=== PATIENT | female | born 1950 | race Caucasian/White ===

== ENCOUNTER → 2021-07-19 09:48 | Outpatient (BNVA) | payer MEDICARE, SELFPAY | PROVIDERS: PCP Internal Medicine; Visit Provider Psychiatry & Neurology Neurology | DX: G25.81 Restless legs syndrome (principal); M25.572 Pain in left ankle and joints of left foot; Z79.899 Other long term (current) drug therapy | CPT/HCPCS: 99212 ==

== ENCOUNTER → 2021-08-23 11:16 | Outpatient (BNVA) | payer MEDICARE, SELFPAY | PROVIDERS: PCP Internal Medicine; Visit Provider Psychiatry & Neurology Neurology | DX: G25.81 Restless legs syndrome (principal); M25.579 Pain in unspecified ankle and joints of unspecified foot; Z79.899 Other long term (current) drug therapy | CPT/HCPCS: 99212 ==

== ENCOUNTER → 2021-11-29 09:34 | Outpatient (BNVA) | payer MEDICARE, SELFPAY | PROVIDERS: PCP Internal Medicine; Visit Provider Psychiatry & Neurology Neurology | DX: G25.81 Restless legs syndrome (principal); M25.579 Pain in unspecified ankle and joints of unspecified foot | CPT/HCPCS: 99212 ==

== ENCOUNTER → 2022-03-12 12:55 | Outpatient (BNVA) | payer OTHER, SELFPAY | PROVIDERS: PCP Internal Medicine; Visit Provider Psychiatry & Neurology Neurology | DX: G25.81 Restless legs syndrome (principal) ==

== ENCOUNTER → 2022-08-05 15:51 | Outpatient (BNVA) | payer OTHER, SELFPAY | PROVIDERS: PCP Internal Medicine; Visit Provider Psychiatry & Neurology Neurology | DX: M25.579 Pain in unspecified ankle and joints of unspecified foot (principal); M54.10 Radiculopathy, site unspecified; G57.50 Tarsal tunnel syndrome, unspecified lower limb; G25.81 Restless legs syndrome ==

== ENCOUNTER 2023-01-03 13:35 | Outpatient (AMB) | payer MEDICARE, SELFPAY ==
[2023-01-03 13:50] VITALS: BP 160/73; PULSE 82; RESP 16; O2SAT 98; BMI 27.7
--- NOTE | 2023-01-03 13:50 | MHC.OFFVIS ---
Intake Vital Signs 01/03/23 13:50 Height 5 ft 4 in Weight 161 lb 4 oz BMI 27.7 BP 160/73 H Blood Pressure Location Lt brachial Position Sitting Respiration 16 Pulse 82 Pulse Source Pulse Oximeter Pulse Oximetry (%) 98 Oxygen Delivery Method Room Air Intake Visit Reasons: [employer]-Chronic Neuropathy/confirmed Allergies amoxicillin [From Augmentin] Allergy (Mild, Verified 08/05/22 15:57) Hives clavulanic acid [From Augmentin] Allergy (Mild, Verified 08/05/22 15:57) Hives sulfamethoxazole [From Bactrim] Allergy (Mild, Verified 08/05/22 15:57) Hives trimethoprim [From Bactrim] Allergy (Mild, Verified 08/05/22 15:57) Hives NSAIDS (Non-Steroidal Anti-Inflamma Adverse Reaction (Intermediate, Verified 01/03/23 13:47) Hives pregabalin [From Lyrica] Adverse Reaction (Intermediate, Verified 01/03/23 13:47) hives Sulfa (Sulfonamide Antibiotics) Adverse Reaction (Intermediate, Verified 01/03/23 13:48) Hives HPI HPI Comments History of Present Illness Details Eva is a very pleasant 72 year old female who presents to the office today for evaluation and management of her chronic bilateral painful peripheral neuropathy. Patient reports burning, tingling, stinging pain to both feet for the last several years. She states the pain started with just a little burning pain that has progressively worsened over the last couple of years. Neurology has been following her for this pain. She takes gabapentin that helps a little. She tried requip in the past but it did not help her pain. They offered to increase the dose of her gabapentin but she does not want to be sedated. Pain today is rated as 7/10, bottom and top of both feet up to her ankles. In terms of muscle damage condition is described as aching, hot, burning, tiring, exhausting, tingling, pins and needles. Patient denies history of diabetes. [facility] Medical History Arthritis Low back pain Pain Radiculopathy Right ankle injury Tarsal tunnel syndrome Surgical History History of carpal tunnel surgery History of knee replacement procedure of left knee Hx of section Family History Father Tremor Neuropathy Social History Household Members: Children Alcohol intake: current Alcohol intake frequency: holidays/special occasions only Alcohol type: wine Patient Tobacco Use Status: Never used Tobacco Review of Systems Const All systems reviewed & are unremarkable except as noted in HPI and below Physical Exam Vital Signs: Last Vital Signs Pulse 82 01/03/23 13:50 Resp 16 01/03/23 13:50 BP 160/73 H 01/03/23 13:50 Pulse Ox 98 01/03/23 13:50 Oxygen Delivery Method Room Air 01/03/23 13:50 BMI result Body Mass Index 27.7 General: awake, alert, oriented. Answers questions appropriately. Fully engaged in examination. Skin: warm, dry, intact. no open areas noted to either foot. HEENT: Normocephalic. Hearing intact. Cardiac: External chest normal in appearance. Respiratory: No cough, audible wheezing or stridor. Abdomen: without gross distension. MS: No obvious swelling or deformities. Able to transition from sit to stand unassisted. Ambulates with bilaterally normal heel strike and toe off intact light touch sensation bilateral feet 2+ DP and PT pulses bilaterally Neurological: Oriented to person, place, time and situation. Thought process intact. No gait abnormalities appreciated. Psychiatric: Appropriate mood and affect. Good judgment and insight. Assessment & Plan Assessment & Plan (1) Peripheral neuropathy: Code(s): G62.9 - Polyneuropathy, unspecified Plan Eva is a very pleasant 72 year old female who presented to the office today for evaluation and management of her bilateral painful peripheral neuropathy. Patient has been suffering with this pain for several years and has not found relief with topical medications, gabapentin, requip. Discussed options for treatment, Qutenza pamphlet provided. Lengthy discussion with patient detailing Qutenza application, preparation for the appointment with EMLA topical and expectations during application visit. PA will be submitted for Qutenza, patient expecting a call to schedule application once approved. All questions and concerns were answered during the visit. Patient agrees to the plan. Follow up for Qutenza application, sooner if needed. Coding Level of Care Code New Pt Level 4 (37366) Diagnoses Peripheral neuropathy G62.9
== END 2023-01-03 14:24 | disposition home or self-care (01) ==
PROVIDERS: PCP Internal Medicine; Visit Provider Registered Nurse Emergency
DX: G62.9 Polyneuropathy, unspecified (principal)
CPT/HCPCS: 99204

== ENCOUNTER → 2023-01-03 13:35 | Outpatient (BNVA) | payer MEDICARE, SELFPAY | PROVIDERS: PCP Internal Medicine; Visit Provider Registered Nurse Emergency | DX: G62.9 Polyneuropathy, unspecified (principal) | CPT/HCPCS: 99202 ==

== ENCOUNTER 2023-02-11 13:45 | Outpatient (AMB) | payer MEDICARE, SELFPAY ==
--- NOTE | 2023-02-11 13:59 | MHC.OFFVIS ---
Intake Vital Signs 02/11/23 14:17 02/11/23 14:33 02/11/23 14:54 Height 5 ft 4 in Weight 157 lb 8 oz BMI 27.0 BP 141/68 H 122/65 127/58 L Blood Pressure Location Lt brachial Lt brachial Lt brachial Position Sitting Sitting Respiration 16 Pulse 76 Pulse Source Pulse Oximeter Pulse Oximetry (%) 95 Oxygen Delivery Method Room Air Intake Visit Reasons: Qutenza - 1st/lvm Allergies amoxicillin [From Augmentin] Allergy (Mild, Verified 02/11/23 13:58) Hives clavulanic acid [From Augmentin] Allergy (Mild, Verified 02/11/23 13:58) Hives sulfamethoxazole [From Bactrim] Allergy (Mild, Verified 02/11/23 13:58) Hives trimethoprim [From Bactrim] Allergy (Mild, Verified 02/11/23 13:58) Hives NSAIDS (Non-Steroidal Anti-Inflamma Adverse Reaction (Intermediate, Verified 02/11/23 13:58) Hives pregabalin [From Lyrica] Adverse Reaction (Intermediate, Verified 02/11/23 13:58) hives Sulfa (Sulfonamide Antibiotics) Adverse Reaction (Intermediate, Verified 02/11/23 13:58) Hives HPI HPI Comments History of Present Illness Details Patient presents back to the office, accompanied by her daughter, for 1st Qutenza application. She cleansed her feet at home and applied topical EMLA cream. Denies any new changes in her neuropathy since last visit. Still taking Gabapentin as prescribed. Denies any new rashes, injuries or wounds to either feet. Patient c/o persistent pain to the left knee, s/p replacement 05/2021. Has followed up with [facility], was told pain may resolve over time. Pain impacting mobility, function, daily activities, walking and enjoyment of life. Prior: Eva is a very pleasant 72 year old female who presents to the office today for evaluation and management of her chronic bilateral painful peripheral neuropathy. Patient reports burning, tingling, stinging pain to both feet for the last several years. She states the pain started with just a little burning pain that has progressively worsened over the last couple of years. Neurology has been following her for this pain. She takes gabapentin that helps a little. She tried requip in the past but it did not help her pain. They offered to increase the dose of her gabapentin but she does not want to be sedated. Pain today is rated as 7/10, bottom and top of both feet up to her ankles. In terms of muscle damage condition is described as aching, hot, burning, tiring, exhausting, tingling, pins and needles. Patient denies history of diabetes. [facility] Medical History Arthritis Low back pain Pain Radiculopathy Right ankle injury Tarsal tunnel syndrome Surgical History History of carpal tunnel surgery History of knee replacement procedure of left knee Hx of section Family History Father Tremor Neuropathy Social History Household Members: Children Alcohol intake: current Alcohol intake frequency: holidays/special occasions only Alcohol type: wine Patient Tobacco Use Status: Never used Tobacco Review of Systems Const All systems reviewed & are unremarkable except as noted in HPI and below Physical Exam Vital Signs: Last Vital Signs Pulse 76 02/11/23 14:17 Resp 16 02/11/23 14:17 BP 122/65 02/11/23 14:33 Pulse Ox 95 02/11/23 14:17 Oxygen Delivery Method Room Air 02/11/23 14:17 BMI result Body Mass Index 27.0 General: awake, alert, oriented. Answers questions appropriately. Fully engaged in examination. Skin: warm, dry, intact. no open areas noted to either foot. HEENT: Normocephalic. Hearing intact. Cardiac: External chest normal in appearance. Respiratory: No cough, audible wheezing or stridor. Abdomen: without gross distension. MS: No obvious swelling or deformities. Able to transition from sit to stand unassisted. Ambulates with bilaterally normal heel strike and toe off intact light touch sensation bilateral feet 2+ DP and PT pulses bilaterally Neurological: Oriented to person, place, time and situation. Thought process intact. No gait abnormalities appreciated. Psychiatric: Appropriate mood and affect. Good judgment and insight. Office Meds capsaicin-skin cleanser 8 % topical kit Performing Provider: Sharon Durham APRN, PEARL TECHNICIAN Performing Location: [facility] Administered by: Sharon Durham APRN, ALMITA on 02/11/23 14:29 Dose Route Admin Location Dispensed Lot Number Expiration Date [facility] [employer] 2 ea topical 2 ea [id number] 08/24/25 61617-825-96 [employer] Comments: Patient applied topical EMLA cream to both feet prior to arrival for her scheduled appointment. Feet exposed, no wounds, rashes or breaks in skin noted. Light touch sensation intact bilaterally. Four single use topical patches (179mg capsaicin) divided between feet, 2 patches per foot, wrapped and secured per package instructions. Patient monitored throughout the procedure with BP checks every 15 minutes. She tolerated the 30 minute application well. Assessment & Plan Assessment & Plan (1) Peripheral neuropathy: Code(s): G62.9 - Polyneuropathy, unspecified Plan Eva is a very pleasant 72 year old female who presented to the office today for 1st topical Qutenza application for her bilateral painful peripheral neuropathy. Qutenza applied as per above, patient monitored for 30 minutes during the procedure. Tolerated well. Patient also complaining of chronic left knee pain after replacement 05/2021. Discussed options for treatment today, [employer] [facility] pamphlet provided. Patient will review and call if she wants to schedule diagnostic left femoral nerve block. All questions and concerns were answered during the visit. Patient agrees to the plan. Follow up for 2nd Qutenza application, sooner if needed. Orders: Orders AMB Capsaicin Patch - Practice Supplied Today G62.9 - Polyneuropathy, unspecified Coding Level of Care Code Est Pt Level 4 (66947) Diagnoses Peripheral neuropathy G62.9
[2023-02-11 14:17] VITALS: BP 141/68; PULSE 76; RESP 16; O2SAT 95; BMI 27.0
[2023-02-11 14:33] VITALS: BP 122/65
[2023-02-11 14:54] VITALS: BP 127/58
== END 2023-02-11 15:20 | disposition home or self-care (01) ==
PROVIDERS: PCP Internal Medicine; Visit Provider Registered Nurse Emergency
DX: G62.9 Polyneuropathy, unspecified (principal)
CPT/HCPCS: 17999; 99213

== ENCOUNTER → 2023-02-11 13:45 | Outpatient (BNVA) | payer MEDICARE, SELFPAY | PROVIDERS: PCP Internal Medicine; Visit Provider Registered Nurse Emergency | DX: G62.9 Polyneuropathy, unspecified (principal) | CPT/HCPCS: 17999; 99212; J7336 ==

== ENCOUNTER 2023-05-14 13:43 | Outpatient (AMB) | payer MEDICARE, SELFPAY ==
[2023-05-14 13:56] VITALS: BP 140/69; PULSE 75; RESP 16; O2SAT 96; BMI 28.1
--- NOTE | 2023-05-14 13:56 | A.OFFVIS_ITS ---
Intake Vital Signs 05/14/23 13:56 05/14/23 14:37 05/14/23 15:12 Height 5 ft 4 in Weight 163 lb 8 oz BMI 28.1 BP 140/69 H 138/64 136/70 Blood Pressure Location Lt brachial Lt brachial Lt brachial Position Sitting Sitting Sitting Respiration 16 Pulse 75 Pulse Source Pulse Oximeter Pulse Oximetry (%) 96 Oxygen Delivery Method Room Air Intake Visit Reasons: Qutenza Allergies amoxicillin [From Augmentin] Allergy (Mild, Verified 05/14/23 13:57) Hives clavulanic acid [From Augmentin] Allergy (Mild, Verified 05/14/23 13:57) Hives sulfamethoxazole [From Bactrim] Allergy (Mild, Verified 05/14/23 13:57) Hives trimethoprim [From Bactrim] Allergy (Mild, Verified 05/14/23 13:57) Hives NSAIDS (Non-Steroidal Anti-Inflamma Adverse Reaction (Intermediate, Verified 05/14/23 13:57) Hives pregabalin [From Lyrica] Adverse Reaction (Intermediate, Verified 05/14/23 13:57) hives Sulfa (Sulfonamide Antibiotics) Adverse Reaction (Intermediate, Verified 05/14/23 13:57) Hives HPI HPI Comments History of Present Illness Details Eva presents to the office today for her second Qutenza application. Patient applied EMLA cream at home per instructions. She reports some improvement after the 1st Qutenza application, but states that it only lasted for a short time. She endorses burning and ?squishy? feeling to the bottoms of her feet and burning sensation bilaterally near the ankles Denies new meds, allergies or diagnoses. Patient denies any recent injuries or wounds to her feet. Prior: Patient presents back to the office, accompanied by her daughter, for 1st Qutenza application. She cleansed her feet at home and applied topical EMLA cream. Denies any new changes in her neuropathy since last visit. Still taking Gabapentin as prescribed. Denies any new rashes, injuries or wounds to either feet. Patient c/o persistent pain to the left knee, s/p replacement 05/2021. Has followed up with [facility], was told pain may resolve over time. Pain impacting mobility, function, daily activities, walking and enjoyment of life. Prior: Eva is a very pleasant 72 year old female who presents to the office today for evaluation and management of her chronic bilateral painful peripheral neuropathy. Patient reports burning, tingling, stinging pain to both feet for the last several years. She states the pain started with just a little burning pain that has progressively worsened over the last couple of years. Neurology has been following her for this pain. She takes gabapentin that helps a little. She tried requip in the past but it did not help her pain. They offered to increase the dose of her gabapentin but she does not want to be sedated. Pain today is rated as 7/10, bottom and top of both feet up to her ankles. In terms of muscle damage condition is described as aching, hot, burning, tiring, exhausting, tingling, pins and needles. Patient denies history of diabetes. [facility] Medical History Arthritis Low back pain Pain Radiculopathy Right ankle injury Tarsal tunnel syndrome Surgical History History of carpal tunnel surgery History of knee replacement procedure of left knee Hx of section Family History Father Tremor Neuropathy Social History Household Members: Children Alcohol intake: current Alcohol intake frequency: holidays/special occasions only Alcohol type: wine Patient Tobacco Use Status: Never used Tobacco Review of Systems Const All systems reviewed & are unremarkable except as noted in HPI and below Physical Exam Vital Signs: Last Vital Signs Pulse 75 05/14/23 13:56 Resp 16 05/14/23 13:56 BP 138/64 05/14/23 14:37 Pulse Ox 96 05/14/23 13:56 Oxygen Delivery Method Room Air 05/14/23 13:56 BMI result Body Mass Index 28.1 General: awake, alert, oriented. Answers questions appropriately. Fully engaged in examination. Skin: warm, dry, intact. no bruising, abrasions, wounds or lesions noted to either foot. HEENT: Normocephalic. Hearing intact. Cardiac: External chest normal in appearance. Respiratory: No cough, audible wheezing or stridor. Abdomen: without gross distension. MS: No obvious swelling or deformities. Able to transition from sit to stand unassisted. intact light touch sensation bilateral feet 2+ DP and PT pulses bilaterally Neurological: Oriented to person, place, time and situation. Thought process intact. No gait abnormalities appreciated. Psychiatric: Appropriate mood and affect. Good judgment and insight. Office Meds capsaicin-skin cleanser 8 % topical kit Performing Provider: Sharon Durham APRN, CNP Performing Location: [facility] Administered by: Sharon Durham APRN, CNP on 05/14/23 14:14 Dose Route Admin Location Dispensed Lot Number Expiration Date [facility] [employer] 4 ea topical 4 ea [id number] 07/25/25 [id number] [employer] Comments: Patient applied topical EMLA cream to both feet prior to arrival for her scheduled appointment. Feet exposed, no wounds, rashes or breaks in skin noted. Light touch sensation intact bilaterally. Four single use topical patches (179mg capsaicin) divided between feet, 2 patches per foot, wrapped and secured per package instructions. Patient monitored throughout the procedure with BP checks every 15 minutes. She tolerated the 30 minute application well. Assessment & Plan Assessment & Plan (1) Peripheral neuropathy: Code(s): G62.9 - Polyneuropathy, unspecified Plan Eva is a very pleasant 72 year old female who presented to the office today for 2nd topical Qutenza application for her bilateral painful peripheral neuropathy. Qutenza application as per above. Patient tolerated well, discharged home with no reported untoward effects. Cleansing gel applied prior to discharge, patient given cleansing gel for home use if needed. All questions and concerns were answered during the visit. Patient agrees to the plan. Follow up in 3 months for 3rd Qutenza application, sooner if needed. Orders: Orders AMB Capsaicin Patch - Practice Supplied Today G62.9 - Polyneuropathy, unspecified Coding Level of Care Code Est Pt Level 4 (62204) Diagnoses Peripheral neuropathy G62.9
[2023-05-14 14:37] VITALS: BP 138/64
[2023-05-14 15:12] VITALS: BP 136/70
== END 2023-05-14 15:03 | disposition home or self-care (01) ==
PROVIDERS: PCP Internal Medicine; Visit Provider Registered Nurse Emergency
DX: G62.9 Polyneuropathy, unspecified (principal)
CPT/HCPCS: 17999; 99214

== ENCOUNTER → 2023-05-14 13:43 | Outpatient (BNVA) | payer MEDICARE, SELFPAY | PROVIDERS: PCP Internal Medicine; Visit Provider Registered Nurse Emergency | DX: G62.9 Polyneuropathy, unspecified (principal); Z79.899 Other long term (current) drug therapy | CPT/HCPCS: 17999; 99212; J7336 ==

== ENCOUNTER 2023-08-06 13:47 | Outpatient (AMB) | payer MEDICARE, SELFPAY ==
--- NOTE | 2023-08-06 13:49 | A.OFFVIS_ITS ---
Vital Signs 08/06/23 13:53 Height 5 ft 4 in Weight 162 lb 4 oz BMI 27.8 BP 118/66 Blood Pressure Location Rt brachial Position Sitting Respiration 16 Pulse 76 Pulse Source Pulse Oximeter Pulse Oximetry (%) 98 Oxygen Delivery Method Room Air Intake Visit Reasons: 1yr follow up - Confirmed Intake Note: Pt reports for one year follow up for RLS. Top Case Assembler Required: No Allergies amoxicillin [From Augmentin] Allergy (Mild, Verified 08/06/23 13:52) Hives clavulanic acid [From Augmentin] Allergy (Mild, Verified 08/06/23 13:52) Hives sulfamethoxazole [From Bactrim] Allergy (Mild, Verified 08/06/23 13:52) Hives trimethoprim [From Bactrim] Allergy (Mild, Verified 08/06/23 13:52) Hives NSAIDS (Non-Steroidal Anti-Inflamma Adverse Reaction (Intermediate, Verified 08/06/23 13:52) Hives pregabalin [From Lyrica] Adverse Reaction (Intermediate, Verified 08/06/23 13:52) hives Sulfa (Sulfonamide Antibiotics) Adverse Reaction (Intermediate, Verified 08/06/23 13:52) Hives Medication List - Last Reconciled 08/06/23 by Hanna Castellano MD albuterol sulfate mg inhalation albuterol sulfate 90 mcg/actuation inhalation amlodipine 5 mg PO DAILY epinephrine IM fluticasone propion-salmeterol 250-50 mcg/dose (Wixela Inhub) 1 ea inhalation BID gabapentin 600 mg (2 x 300 mg) PO BID latanoprost 0.005% 1 drp ophthalmic (eye) BEDTIME levothyroxine 75 mcg PO DAILY lidocaine-prilocaine 2.5-2.5 % 1 appl topical ONCE montelukast 10 mg PO DAILY bahkdpol-kuq-rfiy-FA-vit K-lut 8 mg iron-400 mcg-50 mcg (Central-Lupis Women's Mature) 1 tab PO DAILY rosuvastatin 10 mg PO BEDTIME tramadol 50 mg PO QID PRN vitamin B complex (B Complex-Vitamin B12 tablet) 1 tab PO DAILY HPI Comments Details: 73y/o female comes for follow of bilateral LE pain- burning pain , achy pain.she had a knee replacement ( L) in May 2022 . she sees pain management ( medical grade capsacin cream)and is on gabapentin 600mg bid She was seen by [facility] who took Xrays of foot - found bone spurs- tarsal tunnel syndrome EMG was normal as per patient- no evidence of tarsal tunnel EMG in the past showed mild left L 4 radiculopathy P she also has h/o left vestibular schwannoma , familial tremors, anterior ischemic optic neuropathy. [facility] Medical History Arthritis Low back pain Pain Radiculopathy Right ankle injury Tarsal tunnel syndrome Surgical History History of knee replacement procedure of left knee Hx of section History of carpal tunnel surgery Family History Father Tremor Neuropathy Social History Household Members: Children Alcohol intake: current Alcohol intake frequency: holidays/special occasions only Alcohol type: wine Patient Tobacco Use Status: Never used Tobacco Physical Exam Vital Signs: Last Vital Signs Pulse 76 08/06/23 13:53 Resp 16 08/06/23 13:53 BP 118/66 08/06/23 13:53 Pulse Ox 98 08/06/23 13:53 Oxygen Delivery Method Room Air 08/06/23 13:53 BMI result Body Mass Index 27.8 Const General: cooperative, healthy appearing and comfortable Nutritional Appearance: average body habitus Orientation/consciousness: patient oriented x3 Limitations: no limitations HEENT Head: Yes normal to inspection Face and sinus: Yes normal facial exam Neuro Other: ankles- tenderness above the medial malleollus General: patient oriented x3 and tone normal Cranial nerves: Yes CN's II-XII intact bilaterally, Yes Bilaterally intact EOM present, Yes Nystagmus not present and Yes Normal facial strength present Cognition (Neuro): normal cognition Assessment & Plan Assessment & Plan (1) Restless legs syndrome (RLS): Code(s): G25.81 - Restless legs syndrome Category: Medical (2) Ankle pain: Comment: tarsal tunnel syndrome bone spurs Code(s): M25.579 - Pain in unspecified ankle and joints of unspecified foot Category: Medical Plan Gabapenitn 600mg bid F/u with Pain management Coding Level of Care Code Est Pt Level 4 (28738) Diagnoses Restless legs syndrome (RLS) G25.81 Ankle pain M25.579
[2023-08-06 13:53] VITALS: BP 118/66; PULSE 76; RESP 16; O2SAT 98; BMI 27.8
== END 2023-08-06 14:23 | disposition home or self-care (01) ==
PROVIDERS: PCP Internal Medicine; Visit Provider Psychiatry & Neurology Neurology
DX: G25.81 Restless legs syndrome (principal); M25.579 Pain in unspecified ankle and joints of unspecified foot
CPT/HCPCS: 99214

== ENCOUNTER → 2023-08-06 13:47 | Outpatient (BNVA) | payer MEDICARE, SELFPAY | PROVIDERS: PCP Internal Medicine; Visit Provider Psychiatry & Neurology Neurology | DX: M25.572 Pain in left ankle and joints of left foot (principal); M25.571 Pain in right ankle and joints of right foot; G25.81 Restless legs syndrome | CPT/HCPCS: 99212 ==

== ENCOUNTER 2023-08-14 13:53 | Outpatient (AMB) | payer MEDICARE, SELFPAY ==
--- NOTE | 2023-08-14 14:14 | A.OFFVIS_ITS ---
Vital Signs 08/14/23 14:15 08/14/23 15:07 08/14/23 15:07 Height 5 ft 4 in Weight 162 lb BMI 27.8 BP 123/63 128/57 L 123/68 Blood Pressure Location Lt brachial Lt brachial Lt brachial Position Sitting Sitting Sitting Pulse 73 70 70 Pulse Source Pulse Oximeter Pulse Oximeter Pulse Oximeter Pulse Oximetry (%) 98 Oxygen Delivery Method Room Air Comment 15 mins after qutenza application 30 mins after qutenza application Intake Visit Reasons: QUTENZA Intake Note: Pain today 06/03 Structurer Required: No Accompanied by: Self / Same As Patient Allergies amoxicillin [From Augmentin] Allergy (Mild, Verified 08/14/23 15:17) Hives clavulanic acid [From Augmentin] Allergy (Mild, Verified 08/14/23 15:17) Hives sulfamethoxazole [From Bactrim] Allergy (Mild, Verified 08/14/23 15:17) Hives trimethoprim [From Bactrim] Allergy (Mild, Verified 08/14/23 15:17) Hives NSAIDS (Non-Steroidal Anti-Inflamma Adverse Reaction (Intermediate, Verified 08/14/23 15:17) Hives pregabalin [From Lyrica] Adverse Reaction (Intermediate, Verified 08/14/23 15:17) hives Sulfa (Sulfonamide Antibiotics) Adverse Reaction (Intermediate, Verified 08/14/23 15:17) Hives HPI Comments Details: Eva presents to the office today for her third Qutenza application. Patient applied EMLA cream at home per instructions. She reports some improvement after the 2nd Qutenza application. Still using gabapentin and CBD/THC cream. Had recent visit with Neurology, they are requesting that we assume responsibility for prescribing her gabapentin. She takes 600 mg twice daily. Denies any changes in neuropathy since last visit Denies new meds, allergies or diagnoses. Patient denies any recent injuries or wounds to her feet. Prior: Patient presents back to the office, accompanied by her daughter, for 1st Qutenza application. She cleansed her feet at home and applied topical EMLA cream. Denies any new changes in her neuropathy since last visit. Still taking Gabapentin as prescribed. Denies any new rashes, injuries or wounds to either feet. Patient c/o persistent pain to the left knee, s/p replacement 05/2021. Has followed up with [facility], was told pain may resolve over time. Pain impacting mobility, function, daily activities, walking and enjoyment of life. Prior: Eva is a very pleasant 72 year old female who presents to the office today for evaluation and management of her chronic bilateral painful peripheral neuropathy. Patient reports burning, tingling, stinging pain to both feet for the last sev eral years. She states the pain started with just a little burning pain that has progressively worsened over the last couple of years. Neurology has been following her for this pain. She takes gabapentin that helps a little. She tried requip in the past but it did not help her pain. They offered to increase the dose of her gabapentin but she does not want to be sedated. Pain today is rated as 7/10, bottom and top of both feet up to her ankles. In terms of muscle damage condition is described as aching, hot, burning, tiring, exhausting, tingling, pins and needles. Patient denies history of diabetes. [facility] Medical History Arthritis Low back pain Pain Radiculopathy Right ankle injury Tarsal tunnel syndrome Surgical History History of knee replacement procedure of left knee Hx of section History of carpal tunnel surgery Family History Father Tremor Neuropathy Social History Household Members: Children Alcohol intake: current Alcohol intake frequency: holidays/special occasions only Alcohol type: wine Patient Tobacco Use Status: Never used Tobacco Review of Systems Const All systems reviewed & are unremarkable except as noted in HPI and below Physical Exam Vital Signs: Last Vital Signs Pulse 70 08/14/23 15:07 BP 123/68 08/14/23 15:07 Pulse Ox 98 08/14/23 14:15 Oxygen Delivery Method Room Air 08/14/23 14:15 BMI result Body Mass Index 27.8 Office Meds capsaicin-skin cleanser 8 % topical kit Performing Provider: Sharon Durham APRN, CNP Performing Location: [facility] Administered by: Sharon Durham APRN, ALMITA on 08/14/23 16:08 Dose Route Admin Location Dispensed Lot Number Expiration Date [employer] 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 Feet exposed, no wounds, rashes or breaks in skin noted. Light touch sensation intact bilaterally. Four single use topical patches (179mg capsaicin) divided between feet, 2 patches per foot, wrapped and secured per package instructions. Patient monitored throughout the procedure with BP checks every 15 minutes. she tolerated the 30 minute application well. Assessment & Plan Assessment & Plan (1) Peripheral neuropathy: Code(s): G62.9 - Polyneuropathy, unspecified Category: Medical Plan Eva is a very pleasant 73 year old female who presented to the office today for 3rd topical Qutenza application for her bilateral painful peripheral neuropathy. Qutenza application as per above. Patient tolerated well, discharged home with no reported untoward effects. Cleansing gel applied prior to discharge, patient given cleansing gel for home use if needed. Refill of gabapentin sent, patient will try 600 mg tablets twice daily instead of the 300 mg capsules. All questions and concerns were answered during the visit. Patient agrees to the plan. Follow up in 3 months for next Qutenza application, sooner if needed. Orders: Orders AMB Capsaicin Patch - Practice Supplied Today G62.9 - Polyneuropathy, unspecified Medications: New gabapentin 600 mg PO BID 60 tabs 6RF capsaicin-skin cleanser 8 % 4 ea topical ONCE 1 ea 0RF G62.9 - Polyneuropathy, unspecified Coding Level of Care Code Est Pt Level 4 (91184) Diagnoses Peripheral neuropathy G62.9
[2023-08-14 14:15] VITALS: BP 123/63; PULSE 73; O2SAT 98; BMI 27.8
[2023-08-14 15:07] VITALS: BP 123/68; BP 128/57; PULSE 70
== END 2023-08-14 15:52 | disposition home or self-care (01) ==
PROVIDERS: PCP Internal Medicine; Visit Provider Registered Nurse Emergency
DX: G62.9 Polyneuropathy, unspecified (principal)
CPT/HCPCS: 17999; 99214

== ENCOUNTER → 2023-08-14 13:53 | Outpatient (BNVA) | payer MEDICARE, SELFPAY | PROVIDERS: PCP Internal Medicine; Visit Provider Registered Nurse Emergency | DX: G62.9 Polyneuropathy, unspecified (principal) | CPT/HCPCS: 17999; 99212; J7336 ==

== ENCOUNTER 2023-11-27 11:17 | Outpatient (AMB) | payer MEDICARE, SELFPAY ==
--- NOTE | 2023-11-27 11:21 | A.OFFVIS_ITS ---
Vital Signs 11/27/23 11:26 11/27/23 12:04 11/27/23 12:16 Height 5 ft 4 in Weight 166 lb BMI 28.5 BP 139/68 123/65 115/62 Blood Pressure Location Lt brachial Lt brachial Lt brachial Position Sitting Sitting Sitting Pulse 70 64 64 Pulse Source Pulse Oximeter Pulse Oximeter Pulse Oximeter Pulse Oximetry (%) 98 98 Oxygen Delivery Method Room Air Room Air Comment 15 mins after qutenza application 30 mins after qutenza application Intake Visit Reasons: Qutenza Intake Note: Pin today 12/03 Manager Revenue Required: No Accompanied by: Family/Other Allergies amoxicillin [From Augmentin] Allergy (Mild, Verified 11/27/23 11:27) Hives clavulanic acid [From Augmentin] Allergy (Mild, Verified 11/27/23 11:27) Hives sulfamethoxazole [From Bactrim] Allergy (Mild, Verified 11/27/23 11:27) Hives trimethoprim [From Bactrim] Allergy (Mild, Verified 11/27/23 11:27) Hives NSAIDS (Non-Steroidal Anti-Inflamma Adverse Reaction (Intermediate, Verified 11/27/23 11:27) Hives Sulfa (Sulfonamide Antibiotics) Adverse Reaction (Intermediate, Verified 11/27/23 11:27) Hives HPI Comments Details: Patient presents to the office for follow up peripheral neuropathy and 4th topical Qutenza application. Applied EMLA cream at home per instructions. Still using gabapentin and CBD/THC cream. Recently went on a cruise with her son, left her Gabapentin at home so she took Lyrica instead. [place] that it helped her pain better and did not cause her to be sleepy. Would like to change to Lyrica. Denies any changes in neuropathy since last visit Denies new meds, allergies or diagnoses. Patient denies any recent injuries or wounds to her feet. Prior: Eva presents to the office today for her third Qutenza application. Patient applied EMLA cream at home per instructions. She reports some improvement after the 2nd Qutenza application. Still using gabapentin and CBD/THC cream. Had recent visit with Neurology, they are requesting that we assume responsibility for prescribing her gabapentin. She takes 600 mg twice daily. Denies any changes in neuropathy since last visit Denies new meds, allergies or diagnoses. Patient denies any recent injuries or wounds to her feet. Prior: Patient presents back to the office, accompanied by her daughter, for 1st Qutenza application. She cleansed her feet at home and applied topical EMLA cream. Denies any new changes in her neuropathy since last visit. Still taking Gabapentin as prescribed. Denies any new rashes, injuries or wounds to either feet. Patient c/o persistent pain to the left knee, s/p replacement 05/2021. Has followed up with [facility], was told pain may resolve over time. Pain impacting mobility, function, daily activities, walking and enjoyment of life. Prior: Eva is a very pleasant 72 year old female who presents to the office today for evaluation and management of her chronic bilateral painful peripheral bridget ropathy. Patient reports burning, tingling, stinging pain to both feet for the last several years. She states the pain started with just a little burning pain that has progressively worsened over the last couple of years. Neurology has been following her for this pain. She takes gabapentin that helps a little. She tried requip in the past but it did not help her pain. They offered to increase the dose of her gabapentin but she does not want to be sedated. Pain today is rated as 7/10, bottom and top of both feet up to her ankles. In terms of muscle damage condition is described as aching, hot, burning, tiring, exhausting, tingling, pins and needles. Patient denies history of diabetes. [facility] Medical History Arthritis Low back pain Pain Radiculopathy Right ankle injury Tarsal tunnel syndrome Surgical History History of knee replacement procedure of left knee Hx of section History of carpal tunnel surgery Family History Father Tremor Neuropathy Social History Household Members: Children Alcohol intake: current Alcohol intake frequency: holidays/special occasions only Alcohol type: wine Patient Tobacco Use Status: Never used Tobacco Review of Systems Const All systems reviewed & are unremarkable except as noted in HPI and below Physical Exam Vital Signs: Last Vital Signs Pulse 64 11/27/23 12:04 BP 123/65 11/27/23 12:04 Pulse Ox 98 11/27/23 11:26 Oxygen Delivery Method Room Air 11/27/23 11:26 BMI result Body Mass Index 28.5 General: awake, alert, oriented. Answers questions appropriately. Fully engaged in examination. Skin: warm, dry, intact. no bruising, abrasions, wounds or lesions noted to either foot. HEENT: Normocephalic. Hearing intact. Cardiac: External chest normal in appearance. Respiratory: No cough, audible wheezing or stridor. Abdomen: without gross distension. MS: No obvious swelling or deformities. Able to transition from sit to stand unassisted. intact light touch sensation bilateral feet Neurological: Oriented to person, place, time and situation. Thought process intact. No gait abnormalities appreciated. Psychiatric: Appropriate mood and affect. Good judgment and insight. 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 Feet exposed, no wounds, rashes or breaks in skin noted. Light touch sensation intact bilaterally. Four single use topical patches (179mg capsaicin) divided between feet, 2 patches per foot, wrapped and secured per package instructions. Patient monitored throughout the procedure with BP checks every 15 minutes. Tolerated the 30 minute application well. Assessment & Plan Assessment & Plan (1) Peripheral neuropathy: Code(s): G62.9 - Polyneuropathy, unspecified Category: Medical Plan Qutenza application as per above. Patient tolerated well, discharged home with no reported untoward effects. Cleansing gel applied prior to discharge, patient given cleansing gel for home use if needed. Discontinued gabapentin. Prescription for Lyrica 100 mg p.o. twice daily. Discussed options for treatment including SCS trial/implant if no improvement with Qutenza. Patient has not ready to proceed with implantable device at this time. All questions and concerns were answered during the visit. Patient agrees to the plan. Follow up in 3 months for next Qutenza application, sooner if needed. Orders: Orders AMB Capsaicin Patch - Practice Supplied Today G62.9 - Polyneuropathy, unspecified Medications: New pregabalin 100 mg PO BID 60 caps 5RF Discontinued gabapentin Discontinued Reason: Doctor's Order 600 mg PO BID 60 tabs 6RF gabapentin Discontinued Reason: Doctor's Order 600 mg (2 x 300 mg) PO BID 120 caps 6RF Coding Level of Care Code Est Pt Level 4 (90479) Complex EM visit Add On G2211 Diagnoses Peripheral neuropathy G62.9
[2023-11-27 11:26] VITALS: BP 139/68; PULSE 70; O2SAT 98; BMI 28.5
[2023-11-27 12:04] VITALS: BP 123/65; PULSE 64
[2023-11-27 12:16] VITALS: BP 115/62; PULSE 64; O2SAT 98
== END 2023-11-27 12:04 | disposition home or self-care (01) ==
PROVIDERS: PCP Internal Medicine; Visit Provider Registered Nurse Emergency
DX: G62.9 Polyneuropathy, unspecified (principal)
CPT/HCPCS: 17999; 99214

== ENCOUNTER → 2023-11-27 11:17 | Outpatient (BNVA) | payer MEDICARE, SELFPAY | PROVIDERS: PCP Internal Medicine; Visit Provider Registered Nurse Emergency | DX: G62.9 Polyneuropathy, unspecified (principal) | CPT/HCPCS: 17999; 99212; J7336 ==

== ENCOUNTER 2024-12-24 12:56 | Outpatient (AMB) | payer MEDICARE, SELFPAY ==
--- NOTE | 2024-12-24 13:06 | A.OFFVIS_ITS ---
Vital Signs 12/24/24 13:14 Height 5 ft 4 in Weight 137 lb BMI 23.5 BP 136/67 Blood Pressure Location Lt brachial Position Sitting Pulse 68 Pulse Source Pulse Oximeter Pulse Oximetry (%) 98 Oxygen Delivery Method Room Air Intake Visit Reasons: Follow up/Meds refill Intake Note: Pain today 04/05 Property Preservation Specialist Required: No Accompanied by: Self / Same As Patient Allergies amoxicillin (From Augmentin) Allergy (Mild, Verified 12/24/24 13:13) Hives clavulanic acid (From Augmentin) Allergy (Mild, Verified 12/24/24 13:13) Hives sulfamethoxazole (From Bactrim) Allergy (Mild, Verified 12/24/24 13:13) Hives trimethoprim (From Bactrim) Allergy (Mild, Verified 12/24/24 13:13) Hives NSAIDS (Non-Steroidal Anti-Inflamma Adverse Reaction (Intermediate, Verified 12/24/24 13:13) Hives Sulfa (Sulfonamide Antibiotics) Adverse Reaction (Intermediate, Verified 12/24/24 13:13) Hives HPI Comments Details: The patient is a 74-year-old female presenting with neuropathy and ankle pain. The neuropathy in her feet has improved, allowing her to stand and walk barefoot, attributed to weight loss and red light therapy. She sustained bilateral ankle injuries ten years ago, resulting in chronic pain due to inadequate initial care. Pregabalin is currently used for symptom management, with concerns about medication supply during travel. - Onset: Chronic, following an injury ten years ago - Quality: Persistent pain in both ankles - Location: Bilateral ankles - Exacerbating factors: Initial lack of rest and elevation - Relieving factors: Pregabalin provides relief - Affect: Improved ability to walk barefoot, enhancing mobility - Analgesia: Pregabalin taken twice daily, effective in symptom control - Adverse Effects: None reported - Activities of Daily Living: Improved mobility, able to walk without a cane - Aberrant Drug Related Behaviors: None reported [facility] Medical History Arthritis Low back pain Pain Radiculopathy Right ankle injury Tarsal tunnel syndrome Surgical History History of knee replacement procedure of left knee Hx of section History of carpal tunnel surgery Family History Father Tremor Neuropathy Social History Household Members: Children Alcohol intake: current Alcohol intake frequency: holidays/special occasions only Alcohol type: wine Patient Tobacco Use Status: Never used Tobacco Review of Systems Narrative - Neurological: Reports neuropathy in feet, improved ability to stand and walk barefoot - Musculoskeletal: Reports chronic ankle pain, exacerbated by previous injury Physical Exam Exam Exam: General: awake, alert, oriented. Answers questions appropriately. Fully engaged in examination. Skin: warm, dry, intact HEENT: Normocephalic. Hearing intact. Cardiac: External chest normal in appearance. Respiratory: No cough, audible wheezing or stridor. Abdomen: without gross distension. MS: No obvious swelling or deformities. Neurological: Oriented to person, place, time and situation. Thought process intact. No gait abnormalities appreciated. Psychiatric: Appropriate mood and affect. Good judgment and insight. Vital Signs: Last Vital Signs Pulse 68 12/24/24 13:14 BP 136/67 12/24/24 13:14 Pulse Ox 98 12/24/24 13:14 Oxygen Delivery Method Room Air 12/24/24 13:14 BMI result Body Mass Index 23.5 Assessment & Plan Assessment & Plan (1) Peripheral neuropathy: Code(s): G62.9 - Polyneuropathy, unspecified Category: Medical Plan The patient will continue with pregabalin for neuropathy management, with a prescription for a 90-day supply to ensure medication availability during her upcoming cruise. Weight management strategies, including dietary modifications and red light therapy, will be maintained to support symptom improvement. Patient was informed and verbally consented to the use of an ambient scribe for clinic note documentation during this visit. Medications: Changed From pregabalin 100 mg PO BID 60 caps 1RF To pregabalin 100 mg PO BID 180 caps 1RF 90 days Patient Instructions: - Continue taking pregabalin as prescribed, twice daily. - Ensure to collect the 90-day supply of pregabalin before the cruise. - Maintain current dietary and red light therapy regimen for weight management. Coding Level of Care Code Est Pt Level 3 (87464) Complex EM visit Add On G2211 Diagnoses Peripheral neuropathy G62.9
[2024-12-24 13:14] VITALS: BP 136/67; PULSE 68; O2SAT 98; BMI 23.5
--- OUTSIDE RECORDS SUMMARY | 2024-12-24 14:01 | XMS_ITS | Data Portability ---
Author Organization [place] [facility] [place] Address [address] [place] [address] Assessment Encounter Date Assessment Date Assessment LastModified by Organization Details LastModified Time 08/19/2024 08/19/2024 Her x-rays are overall unremarkable, minimal degenerative changes. We discussed that she likely has chronic ankle pain secondary to her injury in 2016. I offered physical therapy, bracing or an oral steroid. She is open to bracing as well as physical therapy. She will follow-up in 4 to 5 weeks for repeat assessment. Patient was prescribed an ASO brace for above diagnosis. The patient is ambulatory but has weakness and/or instability which requires stabilization from this semi-rigid / rigid orthosis to improve their function. Patient was prescribed an ASO brace for above diagnosis. The patient is ambulatory but has weakness and/or instability which requires stabilization from this semi-rigid / rigid orthosis to improve their function. Patient was seen and evaluated by Valerio Marks PA-C in indirect conjunction with Documenting Provider: Shari Alonso MD He/She agrees with history, physical examination, tests/diagnostic imaging, and treatment plan Not available 08/19/2024 13:01:35 09/16/2024 09/16/2024 She has worn braces and attended physical therapy. We discussed a tibiotalar injection to see if this could improve her symptoms. I do not have any other great options for her as her x-rays are normal. She reports a previous reaction to cortisone. She would like to consider an injection but would like to have a friend here for this. She may follow-up with me as needed. [email or web address] Not available 09/22/2024 19:59:05 12/09/2024 12/09/2024 We have previously discussed trialing a corticosteroid injection to see if this could improve her symptoms. However, she does feel like she has made some progress, but despite 16 weeks of physical therapy and wearing ASO braces, has ongoing pain. At this point, I would recommend an MRI to better evaluate her intra-articular joint pathology and to rule out osteochondral defect. She has similar symptoms bilaterally, but this is worse on the left than the right, so we will obtain imaging of the left side. She will follow-up in 2 weeks to review her MRI. [email or web address] Not available 12/11/2024 20:01:37 Plan of Treatment Reminders Order Date Submit Date Provider Last Modified By Organization Details Last Modified Time Details Appointments RESULTS 2024 10:30A M Shari Alonso MD Not available Not available Not available Lab None recorded. Referral None recorded. Procedures None recorded. Surgeries None recorded. Imaging MRI, ankle, w/o contrast - anteromed ial ankle pain, ongoing despite bracing, PT, ?r/o OCD or intra articular pathology 2024 025 [facility] ([facility]), [address], [place], [address], 12/14/2024 10:10:20 XR, ankle, 3 or more view 2024 025 [email or web address] [facility], [address], [place], [address], 08/19/2024 14:12:04 XR, ankle, 3 or more view 2024 025 [email or web address] [facility], [address], [place], [address], 08/19/2024 14:12:04 Medication Orders None recorded. Patient TargetsNo targets recorded. Patient Instructions Encounter Date Encounter Id Patient Instructions Last Modified By Organization Details Last Modified Time 08/19/2024 [id number] Weightbearing x-rays of the left ankle were obtained on 08/19/2024 which demonstrates no acute fracture. Joint spaces well-preserved. Small osteophyte at the distal fibula. X-rays of the right ankle were also obtained Which demonstrates distal fibula osteophyte otherwise tibiotalar joint is well-preserved. No acute findings. Not available 08/19/2024 13:02:09 09/16/2024 [id number] Weightbearing x-rays of the left ankle were obtained on 08/19/2024 which demonstrates no acute fracture. Joint spaces well-preserved. Small osteophyte at the distal fibula. X-rays of the right ankle were also obtained Which demonstrates distal fibula osteophyte otherwise tibiotalar joint is well-preserved. No acute findings. Not available 09/16/2024 07:55:53 12/09/2024 [id number] Weightbearing x-rays of the left ankle were obtained on 08/19/2024 which demonstrates no acute fracture. Joint spaces well-preserved. Small osteophyte at the distal fibula. X-rays of the right ankle were also obtained Which demonstrates distal fibula osteophyte otherwise tibiotalar joint is well-preserved. No acute findings. [email or web address] Not available 12/09/2024 08:59:19 Reason for Referral None Reported. Problems Name Problem SNOMED Code Status Onset Date Resolution Date Notes Provider Name and Address Organization Details Recorded Time Osteochondral defect of talus 963473924 Active 2024 Shari Alonso MD [address], [place], [address], [place] [facility], 20:01:45 Problem Notes None recorded. Medical Equipment None Reported. Medications Name Sig Start Date Stop Date Status Note LastModified by Organization Details LastModified Time latanoprost 0.005 % eye drops INSTILL 1 DROP INTO BOTH EYES AT BEDTIME DIRECTED active Not Available Not Available No t Available gabapentin 600 mg tablet TAKE 1 TABLET BY MOUTH TWICE A DAY active Not Available Not Available No t Available doxycycline hyclate 100 mg capsule TAKE 1 CAPSULE BY MOUTH TWICE A DAY FOR 7 DAYS 09/16 completed Not Available Not Available Not Available albuterol sulfate 2.5 mg/3 mL (0.083 %) solution for nebulizatio n USE 1 AMPULE VIA NEBULIZER EVERY 2-4 HOURS NEEDED active Not Available Not Available No t Available azithromyci n 250 mg tablet TAKE 2 TABLETS BY MOUTH TODAY, THEN TAKE 1 TABLET DAILY FOR 4 DAYS DIRECTED 09/16 completed Not Available Not Available Not Available prednisone 20 mg tablet TAKE 1 TABLET BY MOUTH TWICE A DAY FOR 5 DAYS THEN ONCE DAILY FOR 5 DAYS active Not Available Not Available No t Available clindamycin HCl 150 mg capsule TAKE 4 CAPSULES BY MOUTH 1 HOUR PRIOR TO APPT 09/16 completed Not Available Not Available Not Available amlodipine 5 mg tablet TAKE 1 TABLET BY MOUTH EVERY DAY active Not Available Not Available No t Available tramadol 50 mg tablet TAKE 1 TABLET BY MOUTH EVERY 6 HOURS NEEDED active Not Available Not Available No t Available lidocaine-p rilocaine 2.5 %-2.5 % topical cream PLEASE SEE ATTACHED FOR DETAILED DIRECTION S active Not Available Not Available No t Available levothyroxi ne 75 mcg tablet TAKE 1 TABLET BY MOUTH EVERY DAY active Not Available Not Available No t Available ketorolac 0.5 % eye drops PLEASE SEE ATTACHED FOR DETAILED DIRECTION S active Not Available Not Available No t Available benzonatate 100 mg capsule TAKE 1 CAPSULE BY MOUTH 3 TIMES A DAY active Not Available Not Available No t Available gabapentin 300 mg capsule TAKE 2 CAPSULES BY MOUTH TWICE A DAY active Not Available Not Available No t Available montelukast 10 mg tablet TAKE 1 TABLET BY MOUTH EVERYDAY AT BEDTIME active Not Available Not Available No t Available epinephrine 0.3 mg/0.3 mL injection, auto-inject or INJECT 1 PEN INTRAMUSC ULARLY DIRECTED FOR ANAPHYLAX IS THEN CALL 911 active Not Available Not Available No t Available methylpredn isolone 4 mg tablets in a dose pack TAKE 6 TABLETS ON DAY 1 DIRECTED ON PACKAGE AND DECREASE BY 1 TAB EACH DAY FOR A TOTAL OF 6 DAYS active Not Available Not Available No t Available albuterol sulfate HFA 90 mcg/actuati on aerosol inhaler INHALE 2 PUFFS BY MOUTH EVERY 4 HOURS NEEDED active Not Available Not Available No t Available rosuvastati n 10 mg tablet TAKE 1 TABLET BY MOUTH EVERYDAY AT BEDTIME active Not Available Not Available No t Available pregabalin 100 mg capsule TAKE 1 CAPSULE BY MOUTH TWICE A DAY active Not Available Not Available No t Available Wixela Inhub 250 mcg-50 mcg/dose powder for inhalation TAKE 1 PUFF BY MOUTH TWICE A DAY active Not Available Not Available No t Available Vitals Date Recorded Body height Body mass index (BMI) Body weight Provider Name and Address Organization Details Last Updated DateTime 08/19/2024 162.56 cm 23.7 kg/m2 [address]5542.[address] [place] [facility] 08/19/2024 11:28:21 Date Recorded Body height Body mass index (BMI) Body weight Provider Name and Address Organization Details Last Updated DateTime 09/16/2024 162.56 cm 23.7 kg/m2 [address]00.[address] [place] [facility] 09/16/2024 08:55:51 Date Recorded Body height Body mass index (BMI) Body weight Provider Name and Address Organization Details Last Updated DateTime 12/09/2024 162.56 cm 23.7 kg/m2 29042.[address] [facility] 12/09/2024 09:54:10 Social History None recorded. Functional Status None recorded. Mental Status None recorded. Family History Nothing Reported. Medical History No medical history recorded. Gynecological HistoryNo gynecological history recorded. Obstetrics History GPAL:G 0 P 0 0 0 0 Past Encounters Encounter ID Performer Location Encounter Start Date Encounter Closed Date Diagnosis/Indication Diagnosis SNOMED-CT Code Diagnosis ICD10 Code Diagnosis IMO Codes Diagnosis Note [id number] VALERIO MARKS PA-C [facility] [address] [place] [address] 08/19/2024 11:13:41 08/19/2024 12:08:04 Ankle pain 765423106 M25.571 M25.572 [id number] MD CATHERINE Kim[address] [address] 09/16/2024 08:44:29 09/16/2024 09:46:38 Ankle pain 403560361 M25.571 M25.572 [id number] Shari Alonso MD [address] [address] 12/09/2024 09:46:29 12/09/2024 10:23:30 Osteochondral defect of talus 590878775 M95.8 [id number] Health Concerns Section Related Observation LastModified by Organization Detai ls LastModified Time None Recorded Concern Status LastModified by Organization Details LastModified Time None Recorded Advance Directives Directive None Recorded Payers Insurance Date Sequence Insurance Name Policy Number Policy Martell Covered Member ID Martell Member ID Guarantor Name 12/13/2024 1 [facility] - MEDICARE ADVANTAGE PLAN (MEDICARE REPLACEMENT HMO) [id number] 1 Eva Hanks [id number] Eva Hanks Notes Date Note Type Note Provider Name and Address Organization Details Recorded Time 08/19/2024 text/html Date of injury: 2016Eva Hanks is a 74-year-old female who presents as an urgent care patient for 5 years of ankle pain without any change in her symptoms. She reports an injury where she fell in her yard in a small hole in 2017 that resulted in bilateral ankle sprains. She feels that since then she has had ongoing pain in her ankles that feels like her ankles are being squeezed from all directions. She has a hard time describing her actual discomfort but does note some intermittent burning pain. Her pain is a 7 to a 9 on a 10 point scale. Her pain is constant.She does note she has peripheral neuropathy that is localized to her plantar bilateral feet for which she has recently been attending a chiropractic and wellness center which has started to alleviate some of that pain. Otherwise she has not had any recent treatment.She previously saw a [facility] where she also underwent x-rays that were negative however has not seen anyone since then.She has a medical history significant for anemia, hypertension, thyroid disease and osteoporosis. She does not drink alcohol. She is a non-smoker. She is retired. VALERIO MARKS PA-C [address], [place], [address], [place] [facility] 08/19/2024 13:02:21 09/16/2024 text/html Date of injury: 2016Eva Hanks is a 74-year-old female who presents today for follow-up evaluation regarding her bilateral ankles. She presented to the urgent care approximately 4 weeks ago but did not have any injury. She has been wearing braces that were provided for her and she has found these helpful and she is also doing PT. She reports her pain is burning and aching. She reports that she would like to be able to hike but also has neuropathy and a bad knee. She has now completed approximately 3 weeks of physical therapy. She is on Lyrica for her neuropathy. From 08/19/24 (TK): as an urgent care patient for 5 years of ankle pain without any change in her symptoms. She reports an injury where she fell in her yard in a small hole in 2017 that resulted in bilateral ankle sprains. She feels that since then she has had ongoing pain in her ankles that feels like her ankles are being squeezed from all directions. She has a hard time describing her actual discomfort but does note some intermittent burning pain. Her pain is a 7 to a 9 on a 10 point scale. Her pain is constant.She does note she has peripheral neuropathy that is localized to her plantar bilateral feet for which she has recently been attending a chiropractic and wellness center which has started to alleviate some of that pain. Otherwise she has not had any recent treatment.She previously saw a [facility] where she also underwent x-rays that were negative however has not seen anyone since then.She has a medical history significant for anemia, hypertension, thyroid disease and osteoporosis. She does not drink alcohol. She is a non-smoker. She is retired. Shari Alonso MD [address], [place], [address], [place] [facility] 09/22/2024 19:59:14 12/09/2024 text/html Date of injury: 2016Eva Hanks is a 74-year-old female who presents today for follow-up evaluation regarding her bilateral ankles. She feels like they are no longer burning but they are still aching. She has been attending physical therapy which she feels like is helping. She continues to take Lyrica, Tylenol arthritis, or tramadol if needed. Her pain is aching and burning and a 4-9 out of 10. It is moderate and constant and improving. She has now completed 16 weeks of physical therapy. From 09/16/24 (AJF): for follow-up evaluation regarding her bilateral ankles. She presented to the urgent care approximately 4 weeks ago but did not have any injury. She has been wearing braces that were provided for her and she has found these helpful and she is also doing PT. She reports her pain is burning and aching. She reports that she would like to be able to hike but also has neuropathy and a bad knee. She has now completed approximately 3 weeks of physical therapy. She is on Lyrica for her neuropathy. From 08/19/24 (TK): as an urgent care patient for 5 years of ankle pain without any change in her symptoms. She reports an injury where she fell in her yard in a small hole in 2017 that resulted in bilateral ankle sprains. She feels that since then she has had ongoing pain in her ankles that feels like her ankles are being squeezed from all directions. She has a hard time describing her actual discomfort but does note some intermittent burning pain. Her pain is a 7 to a 9 on a 10 point scale. Her pain is constant.She does note she has peripheral neuropathy that is localized to her plantar bilateral feet for which she has recently been attending a chiropractic and wellness center which has started to alleviate some of that pain. Otherwise she has not had any recent treatment.She previously saw a [facility] where she also underwent x-rays that were negative however has not seen anyone since then.She has a medical history significant for anemia, hypertension, thyroid disease and osteoporosis. She does not drink alcohol. She is a non-smoker. She is retired. Shari Alonso MD [address], [place], [address], [place] [facility] 12/11/2024 20:02:38 OBGyn Episode No OBEpisode recorded.
--- OUTSIDE RECORDS SUMMARY | 2024-12-24 14:01 | XMS_ITS | Clinical Summary ---
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 Role Phone Ilya Calero MD Primary Care Provider [phone] Allergies Active Allergy Reactions Criticality Noted Date Comments Amoxicillin 08/24/2018 Atorvastatin 08/24/2018 Beef Containing Products 08/24/2018 Calcium 08/24/2018 Bioflavonoids 08/24/2018 Clarithromycin 08/24/2018 Clavulanic Acid 08/24/2018 Doxycycline Calcium 08/24/2018 Erythromycin 08/24/2018 Garlic 08/24/2018 Levofloxacin 08/24/2018 Shellfish Containing Products 2018 Malt Extract 08/24/2018 Mustard 08/24/2018 Naproxen Sodium 08/24/2018 Tree Nut 08/24/2018 Penicillins 08/24/2018 Pork/Porcine Containing Products 02/2018 Potassium 08/24/2018 Rice 08/24/2018 Sulfa (Sulfonamide Antibiotics) 0702/2018 Trihydrogen 08/24/2018 Medications albuterol 90 mcg/actuation inhaler TAKE 2 PUFFS BY MOUTH EVERY 4 HOURS NEEDED 0 08/01/19 19 Active EPINEPHrine 0.3 mg/0.3 mL auto-injector INJECT 1 PEN INTRAMUSCULARLY NEEDED FOR SEVERE ALLERGIC REACTION 1 07/25/19 19 Active WIXELA INHUB 500-50 mcg/dose DISKUS USE 1 PUFF BY MOUTH 2 TIMES A DAY DIRECTED 3 08/10/19 19 Active latanoprost (XALATAN) 0.005 % ophthalmic solution INSTILL 1 DROP INTO BOTH EYES AT BEDTIME 4 08/11/19 19 Active montelukast (SINGULAIR) 10 mg tablet Take 10 mg by mouth nightly at bedtime. Activ e rosuvastatin (CRESTOR) 10 MG tablet Take 10 mg by mouth daily. Active Social History Tobacco Use Types Packs/Day Years Used Date Smoking Tobacco: Never Smokeless Tobacco: Never Education Answer Date Recorded Are you interested in more education? Not on amanda e 06/21/2022 Are you concerned about learning? Not on file 06/21/2022 No 06/21/2022 No 06/21/2022 Digital Access Answer Date Recorded No 07/20/2022 No 07/20/2022 No 07/20/2022 Reliable internet access at home? Not on file 07/20/2022 Device with a working camera? Not on file Comments Unknown Sex and Gender Information Value Date Recorded Sex Assigned at Not on file Legal Sex Female 12:34 PM EDT Gender Identity Not on file Sexual Orientation Not on file Plan of Treatment Health Maintenance Due Date Last Done Comments Adult Td,Tdap Booster 1952 LIPID PANEL 1952 DEPRESSION SCREENING 1964 HEPATITIS C SCREENING 1970 SMOKING STATUS SCREENING (On ce After 26 Yrs) 1978 MAMMOGRAM 1992 COLOGUARD 1997 COLONOSCOPY 1997 COLORECTAL CANCER SCREENING 1997 FIT TEST 1997 FOBT 1997 SIGMOIDOSCOPY 1997 VIRTUAL COLONOSCOPY 1997 PNEUMOCOCCAL VACCINES (50+ years) (1 of 1 - PCV) 2002 ZOSTER VACCINES (1 of 2) 2002 OSTEOPOROSIS SCREENING INITI AL (ONE-TIME) 2017 INFLUENZA VACCINE (#1) 2024 8, 12/12/2009 COVID-19 VACCINE (3 - 2024-2 6 season) 2024 05/24/2020, 05/03/2020 RSV VACCINE (1 - 1-dose 75+ series) 05/27/2027 HEPATITIS A VACCINES Aged Out No long er eligible based on patient's age to complete this topic HIB VACCINES Aged Out No longer eligi ble based on patient's age to complete this topic MENINGOCOCCAL VACCINES (ACWY) Aged Out No longer eligible based on patient's age to complete this topic MENINGOCOCCAL VACCINES (B) Aged Out N o longer eligible based on patient's age to complete this topic Medical Devices Not on file Insurance [facility] HMO Care Teams Construction Rigger Relationship Specialty Start Date End Date Ilya Calero MD [address] [place] [address] PCP - General Internal Medicine 06/16/18 Additional Source Comments The information contained in this document represents components of the legal health record. It is not the complete legal health record.[facility]
--- OUTSIDE RECORDS SUMMARY | 2024-12-24 14:01 | XMS_ITS | Clinical Summary ---
Author Organization [facility] Address [address] [place] [address] Phone Care Team Providers Care Architectural Renderer Name Role Phone Ilya Calero MD Primary Care Provider [phone] Allergies Active Allergy Reactions Criticality Noted Date Comments Aspirin 03/11/2024 Atorvastatin 08/24/2018 Beef Containing Products 08/24/2018 Bioflavonoids 08/24/2018 Calcium 08/24/2018 Cefaclor 03/11/2024 Clarithromycin 08/24/2018 Clavulanic Acid 08/24/2018 Doxycycline Calcium 08/24/2018 Erythromycin 08/24/2018 Garlic 08/24/2018 Levofloxacin 08/24/2018 Malt Extract 08/24/2018 Mustard 08/24/2018 Naproxen Sodium 08/24/2018 Penicillin Hives 08/27/2016 Penicillins 08/24/2018 Pork/Porcine Containing Products 08/24/2018 Potassium 08/24/2018 Rice 08/24/2018 Shellfish Containing Products 08/24/2018 Ibheobg-Zvj-Wmr Reductase Inhibitors 03/11/2024 Sulfa (Sulfonamide Antibiotics) 08/24/2018 Other Reaction(s): Sulfadiazine allergy Tree Nut 08/24/2018 Trihydrogen 08/24/2018 Medications fluticasone propion-salmet Benito (Advair Diskus) 500-50 mcg/dose diskus inhaler Inhale by mouth. 05/04/19 10 Active amLODIPine (NORVASC) 5 mg tablet Take 1 tablet (5 mg total) by mouth 1 (one) time each day. Active EPINEPHrine (EPIPEN) 0.3 mg/0.3 mL injection INJECT 1 PEN INTRAMUSCULARLY NEEDED FOR SEVERE ALLERGIC REACTION 07/25/19 Active Wixela Inhub 250-50 mcg/dose diskus inhaler Inhale by mouth. 09/04/19 23 Active gabapentin (NEURONTIN) 600 mg tablet Take 1 tablet (600 mg total) by mouth 2 (two) times a day. 10/13/19 24 Active latanoprost (XALATAN) 0.005 % ophthalmic solution Administer 1 drop into both eyes. at ebdtime as directed Activ e levothyroxine (SYNTHROID, LEVOTHROID) 75 mcg tablet Take 1 tablet (75 mcg total) by mouth 1 (one) time each day. 12/09/19 24 Active lidocaine-pril ocaine (EMLA) 2.5-2.5 % cream PLEASE SEE ATTACHED FOR DETAILED DIRECTIONS 02/24/20 24 Active loratadine (Claritin) 10 mg tablet Take 1 tablet (10 mg total) by mouth. 05/04/19 10 Active montelukast (SINGULAIR) 10 mg tablet Take 1 tablet (10 mg total) by mouth at bedtime. Active polyethylene glycol 3350 (MIRALAX ORAL) Take 17 g by mouth. 23 Active pregabalin (LYRICA) 100 mg capsule Take 1 capsule (100 mg total) by mouth 2 (two) times a day. 03/01/19 25 Active rosuvastatin (CRESTOR) 10 mg tablet Take 1 tablet (10 mg total) by mouth at bedtime. Active senna (SENOKOT) 8.6 mg tablet Take 1 tablet (8.6 mg total) by mouth. 06/01/19 23 Active traMADoL (ULTRAM) 50 mg tablet Take 1 tablet (50 mg total) by mouth every 6 (six) hours if needed. 02/05/20 24 Active albuterol HFA (PROAIR HFA ; PROVENTIL HFA ; VENTOLIN HFA) 90 mcg/actuation inhaler Take 2 puffs by mouth every 4 (four) hours if needed. 08/01/19 19 Active albuterol 2.5 mg /3 mL (0.083 %) nebulizer solution USE 1 AMPULE VIA NEBULIZER EVERY 2-4 HOURS NEEDED 01/15/20 24 Active acetaminophen (TYLENOL) 325 mg tablet Take 2 tablets (650 mg total) by mouth. 06/01/19 23 Active Active Problems Problem Noted Date Diagnosed Date Vestibular schwannoma ([facility] V24, [facility] V28) 03/11/2024 Asthma 03/11/2024 Eczema 03/11/2024 Hyperlipidemia 03/11/2024 Osteoarthritis 03/11/2024 Surgical History Surgery Date Site/Laterality Comments SECTION, LOW TRANSVERSE 1981 Medical History Medical History Date Comments Asthma 1988 Family History Medical History Relation Name Comments Heart disease Father Scottie guerra Cancer Maternal Grandmother Stacey Mariee Cancer Mother Chiquita Mondragon Heart disease Mother Chiquita Mondragon Hypertension Mother Chiquita Mondragon Cancer Mother's Sister Ajay Hernandez Anibal Relation Name Status Comments Father Scottie guerra Maternal Grandmother Stacey Mariee Mother Chiquita Mondragon Mother's Sister Ajay Hernandez uLzjose Social History Tobacco Use Types Packs/Day Years Used Date Smoking Tobacco: Never Smokeless Tobacco: Never Alcohol Use Standard Drinks/Week Comments Not Currently 0 (1 standard drink = 0.6 oz pure alcohol) Maybe 6 glasses of wine a year Comments Unknown Sex and Gender Information Value Date Recorded Sex Assigned at Not on file Legal Sex Female 11:10 PM EST Gender Identity Not on file Sexual Orientation Not on file Obstetrics History Last Filed Vital Signs Vital Sign Reading Time Taken Comments Blood Pressure 116/60 03/11/2024 10:53 AM EST Pulse 80 03/11/2024 10:53 AM EST Temperature 36.6 C (97.9 F) 03/11/2024 10:53 AM EST Respiratory Rate 16 03/11/2024 10:5 3 AM EST Oxygen Saturation 97% 03/11/2024 10: 53 AM EST Inhaled Oxygen Concentration - - Weight 73.8 kg (162 lb 12.8 oz) 025 10:53 AM EST Height 165.1 cm (5' 5 ) 03/11/2024 10:5 3 AM EST Body Mass Index 27.09 03/11/2024 10:53 AM EST Plan of Treatment Health Maintenance Due Date Last Done Comments Breast Cancer Screening 1950 DTaP,Tdap,and Td Vaccines (1 - Tdap) 05/27/1971 Pneumococcal Vaccine: 50+ Ye ars (1 of 2 - PCV) 05/27/1971 RSV Immunization Adult Patie nts (1 - Risk 50-74 years 1-dose series) 2002 Zoster Vaccines (1 of 2) 2002 Cholesterol Screening (Lipid Panel) 01/27/2022 Falls Risk Assessment 01/27/2022 Hepatitis C Screening 01/27/2022 Medicare Annual Wellness Visit 01/27/2022 Osteoporosis Screening (Bone Density Screening) 01/27/2022 Social Influencers of Health Screening 01/27/2022 Depression Screening 02/25/2024 COVID-19 Vaccine (1 - 2023-2 5 season) 2024 Influenza Vaccine (#1) 2024 Colorectal Cancer Screening: Colonoscopy 08/05/2034 08/05/2024 HIB Vaccines Aged Out No longer eligi ble based on patient's age to complete this topic HPV Vaccines Aged Out No longer eligi ble based on patient's age to complete this topic Hepatitis A Vaccines Aged Out No long er eligible based on patient's age to complete this topic Hepatitis B Vaccines Aged Out No long er eligible based on patient's age to complete this topic IPV Vaccines Aged Out No longer eligi ble based on patient's age to complete this topic MMR Vaccines Aged Out No longer eligi ble based on patient's age to complete this topic Meningococcal ACWY Vaccine Aged Out N o longer eligible based on patient's age to complete this topic Meningococcal B Vaccine Aged Out No l onger eligible based on patient's age to complete this topic RSV Immunization Patients Un aura 20 months Aged Out No longer eligible b ased on patient's age to complete this topic Varicella Vaccines Aged Out No longer eligible based on patient's age to complete this topic Procedures Procedure Name Priority Date/Time Associated Diagnosis Comments EXTERNAL COLONOSCOPY REPORT Routine 08/05/2024 10:50 AM EDT from Last 3 Months or Most Recently Relevant to Health Maintenance Results * External Colonoscopy Report (08/05/2024 10:50 AM EDT) Anatomical Region Laterality Modality Endoscopy us Historical Provider MD GI~PROCEDURE ORDERABLES F inal Result from Last 3 Months or Most Recently Relevant to Health Maintenance Insurance [employer] [place] [id number] Care Teams Architectural Renderer Relationship Specialty Start Date End Date Ilya Calero MD [address] [place] [address] PCP - General 09/16/07
--- OUTSIDE RECORDS SUMMARY | 2024-12-24 14:01 | XMS_ITS ---
Author Name [facility] Organization Unknown History of Medication Use Medication Directions Dispensed Refills Start Date End Date Status azithromycin 250 mg tablet TAKE 2 TABLETS BY MOUTH TODAY, THEN TAKE 1 TABLET DAILY FOR 4 DAYS DIRECTED 025 completed clindamycin HCl 150 mg capsule TAKE 4 CAPSULES BY MOUTH 1 HOUR PRIOR TO APPT 025 completed doxycycline hyclate 100 mg capsule TAKE 1 CAPSULE BY MOUTH TWICE A DAY FOR 7 DAYS 025 completed albuterol sulfate 2.5 mg/3 mL (0.083 %) solution for nebulization USE 1 AMPULE VIA NEBULIZER EVERY 2-4 HOURS NEEDED active albuterol sulfate HFA 90 mcg/actuation aerosol inhaler INHALE 2 PUFFS BY MOUTH EVERY 4 HOURS NEEDED active amlodipine 5 mg tablet TAKE 1 TABLET BY MOUTH EVERY DAY active benzonatate 100 mg capsule TAKE 1 CAPSULE BY MOUTH 3 TIMES A DAY active epinephrine 0.3 mg/0.3 mL injection, auto-injector INJECT 1 PEN INTRAMUSCULARLY DIRECTED FOR ANAPHYLAXIS THEN CALL 911 active gabapentin 300 mg capsule TAKE 2 CAPSULES BY MOUTH TWICE A DAY active gabapentin 600 mg tablet TAKE 1 TABLET BY MOUTH TWICE A DAY active ketorolac 0.5 % eye drops PLEASE SEE ATTACHED FOR DETAILED DIRECTIONS active latanoprost 0.005 % eye drops INSTILL 1 DROP INTO BOTH EYES AT BEDTIME DIRECTED active levothyroxine 75 mcg tablet TAKE 1 TABLET BY MOUTH EVERY DAY active lidocaine-prilocaine 2.5 %-2.5 % topical cream PLEASE SEE ATTACHED FOR DETAILED DIRECTIONS active methylprednisolone 4 mg tablets in a dose pack TAKE 6 TABLETS ON DAY 1 DIRECTED ON PACKAGE AND DECREASE BY 1 TAB EACH DAY FOR A TOTAL OF 6 DAYS active montelukast 10 mg tablet TAKE 1 TABLET BY MOUTH EVERYDAY AT BEDTIME active prednisone 20 mg tablet TAKE 1 TABLET BY MOUTH TWICE A DAY FOR 5 DAYS THEN ONCE DAILY FOR 5 DAYS active pregabalin 100 mg capsule TAKE 1 CAPSULE BY MOUTH TWICE A DAY active rosuvastatin 10 mg tablet TAKE 1 TABLET BY MOUTH EVERYDAY AT BEDTIME active tramadol 50 mg tablet TAKE 1 TABLET BY MOUTH EVERY 6 HOURS NEEDED active Wixela Inhub 250 mcg-50 mcg/dose powder for inhalation TAKE 1 PUFF BY MOUTH TWICE A DAY active Problems Problem Status Onset Date Problem Type Date of Resoluti on Source 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
== END 2024-12-24 13:37 | disposition home or self-care (01) ==
LOC: HO.PMC 12:56
PROVIDERS: PCP Internal Medicine; Visit Provider Registered Nurse Emergency
DX: G62.9 Polyneuropathy, unspecified (principal)
CPT/HCPCS: 99213; G2211

== ENCOUNTER → 2024-12-24 12:56 | Outpatient (BNVA) | payer MEDICARE, SELFPAY | PROVIDERS: PCP Internal Medicine; Visit Provider Registered Nurse Emergency | DX: G62.9 Polyneuropathy, unspecified (principal) | CPT/HCPCS: 99212 ==